=== PATIENT | male | born 1985 | race Caucasian/White ===

== ENCOUNTER 2017-03-31 08:45 | Emergency (ER) | payer OTHER ==
[2017-03-31] MEDS ORDERED: Lidocaine 1% 5ml(IM or SUTURE)(PAIN CLINIC) IJ ONE (09:00)
[2017-03-31] MEDS ORDERED: SODIUM BICARBONATE 2.4 MEQ VIAL INJ ONE (09:00)
--- NOTE | 2017-03-31 09:03 | ED Physician Documentation ---
General Adult - HISTORIAN Historian: patient - HPI Chief Complaint: Suture Removal Onset: minutes Timing: still present Severity: moderate Further Comments: yes (31 year old male patient presents with vertical laceration through left eye brow. Patient states he hit the car door with his head. States the wind blew the door shut. last tetanus 2012.) - ROS CONST: no problems EYES/ENT: none CVS/RESP: none GI/: none MS/SKIN/LYMPH: none - PAST HX Past History: other (Depression, Thymus CA - surgical removed, ) Surgeries/Procedures: other (cardiac/thoracic surgery for removal of thymus CA mass) Immunizations: tetanus (2012), UTD Allergies/Adverse Reactions: Allergies Allergy/AdvReac Type Severity Reaction Status Date / Time aspirin Allergy Verified 03/31/17 09:11 fentanyl Allergy Verified 03/31/17 09:11 morphine Allergy Verified 03/31/17 09:11 Home Medications: Ambulatory Orders Medication Instructions Recorded Fluoxetine HCl [Prozac Weekly] 90 mg PO WE 03/31/17 LORazepam [Ativan] 1 mg PO DAILY 03/31/17 Levothyroxine Sodium [Unithroid] 200 mcg PO DAILY 03/31/17 Mupirocin [Bactroban] 1 appl TP BID #1 tube 03/31/17 - SOCIAL HX Smoking History: cigarettes - FAMILY HX Family History: No - VITAL SIGNS Vital Signs: Vital Signs Temp Pulse Resp BP Pulse Ox 98.6 F 87 20 137/103 96 03/31/17 08:46 03/31/17 08:46 03/31/17 08:46 03/31/17 08:46 03/31/17 08:46 - REVIEWED ASSESSMENTS Nursing Assessment Reviewed: Yes Vitals Reviewed: Yes Procedures Wound Location: face Wound Length: 3.5cm Wound's Depth, Shape: linear Wound Explored: clean Betadine Prep?: No Anesthesia: 1% Lidocaine (with neut) Wound Repaired With: sutures Suture Size/Type: 6:0 Number of Sutures: 7 Progress: Wound anesthetized with lidocaine 1% and neut. Repaired with 6.0 nylon x 7 sutures. Edges well approximated. Reviewed discharge instructions with patient. ED Results Lab/Radiology - Orders Orders: ED Orders Category Date Time Status Lidocaine 1% 5ml(IM or SUTURE) [Xylocaine] Med 03/31/17 09:00 Discontinued 50 mg IJ NOW ONE Sodium Bicarbonate [Neut] Med 03/31/17 09:00 Discontinued 2.4 meq INJ NOW ONE General Adult Physical Exam - PHYSICAL EXAM GENERAL APPEARANCE: mild distress EENT: [place] RESPIRATORY: no resp distress CVS: reg rate & rhythm ABDOMEN: soft SKIN: warm/dry, normal color, other (vertical laceration 3.5 cm throught left eyebrow) NEURO: oriented X3, CN's nml as tested, motor nml, sensation nml, mood/affect nml Discharge Clincal Impression: Facial laceration Qualifiers: Encounter type: initial encounter Qualified Code(s): S01.81XA - Laceration without foreign body of other part of head, initial encounter Prescriptions: Mupirocin [Bactroban] 1 appl TP BID #1 tube Referrals: Primary Doctor,No [Primary Care Provider] - 2 Days Additional Instructions: You can wash or shower after 24 hours. Do not soak the wound in water and make sure it is dry afterwards (gently pat the area dry with a clean towel). Do not get into a swimming pool, hot tub, [place]ake or river until your stitches are removed. To remove your dressing, gently pull it off. If needed, you can dampen it with water then gently pull it off. Clean the laceration twice a day with hibiclens and rinse with water clean away any scabbed area Apply thin coat of antibiotic ointment after cleaning the wound. Cover with non-adherent bandage if able. If you have pain, take simple pain relief medication such as Tylenol or ibuprofen. If bandages or dressings get wet, they will need to be changed. Call your doctor for any signs of symptom of infection redness, drainage, pain. Have your stitches removed at your doctors office in 7 days. Discharged with bactroban ointment apply a thin coat twice a day. Condition: Stable Disposition: 01 HOME, SELF-CARE Decision to Admit: NO Decision Time: 09:25
[2017-03-31 10:23] VITALS: BP 122/100
== END 2017-03-31 09:35 | disposition home or self-care (01) ==
LOC: ED 08:45
DX: S01.81XA Laceration without foreign body of other part of head, initial encounter (principal); X58.XXXA Exposure to other specified factors, initial encounter; Y93.9 Activity, unspecified; Y99.9 Unspecified external cause status
CPT/HCPCS: 12013; 99283